=== PATIENT | female | born 1975 | race African-American/Black ===

== ENCOUNTER 2018-03-06 12:49 | Emergency (ER) | payer OTHER ==
[~2018-03-06] VITALS: Ht 177.8 cm; Wt 90.7 kg
--- NOTE | 2018-03-06 14:12 | PHYS DOC ---
Past Medical History Past Medical History: No Pertinent History Past Surgical History: Other Additional Past Surgical Histo: LEFT FOOT FRACTURE REPAIR Alcohol Use: None Drug Use: None Adult General Chief Complaint Chief Complaint: CONSTIPATION HPI HPI Patient is a 42 year old female who presents with constipation and pain in her left ankle. The patient states that she having problems with constipation for several months. She states that she's tried terx-xaq-fnuxnnn medications, enemas and stool softeners. She has not had success with home care. She states that she also broke her left ankle in October. She was unable to have follow-up on that due to an insurance issue. She is still wearing the cam boot and states that she is now having severe pain due to the fact that she was moving furniture and going up and down stairs recently. She denies nausea, vomiting or diarrhea. Review of Systems Review of Systems Constitutional: Denies fever or chills [] Eyes: Denies change in visual acuity, redness, or eye pain [] HENT: Denies nasal congestion or sore throat [] Respiratory: Denies cough or shortness of breath [] Cardiovascular: No additional information not addressed in HPI [] GI: See history of present illness : Denies dysuria or hematuria [] Musculoskeletal: See history of present illness Integument: Denies rash or skin lesions [] Neurologic: Denies headache, focal weakness or sensory changes [] Endocrine: Denies polyuria or polydipsia [] All other systems were reviewed and found to be within normal limits, except as documented in this note. Current Medications Current Medications Current Medications Medications (Trade) Dose Ordered [facility] Start Time Stop Time Status Last Admin Dose Admin Magnesium Citrate (Citroma) 296 ml 1X ONCE 03/06/18 16:00 03/06/18 16:01 DC 03/06/18 15:43 296 ML Allergies Allergies Allergies Coded Allergies Type Severity Reaction Last Updated Verified No Known Drug Allergies 03/06/18 No Physical Exam Physical Exam Constitutional: Well developed, well nourished, no acute distress, non-toxic appearance. [] Cardiovascular:Heart rate regular rhythm, no murmur [] Lungs & Thorax: Bilateral breath sounds clear to auscultation [] Abdomen: Bowel sounds normal, soft, no tenderness, no masses, no pulsatile masses. [] Skin: Warm, dry, no erythema, no rash. [] Back: No tenderness, no CVA tenderness. [] Extremities: tenderness to left ankle with a well-healed surgical scar noted, no cyanosis, no clubbing, ROM intact, no edema or ecchymosis, pulses and sensation are intact. [] Neurologic: Alert and oriented X 3, normal motor function, normal sensory function, no focal deficits noted. [] Psychologic: Affect normal, judgement normal, mood normal. [] Current Patient Data Vital Signs Vital Signs Date Time Temp Pulse Resp B/P (MAP) Pulse Ox O2 Delivery O2 Flow Rate FiO2 03/06/18 15:56 81 16 119/62 (81) 96 Room Air 03/06/18 12:55 97.7 97.7 Lab Values Laboratory Tests Test 03/06/18 14:20 POC Urine HCG, Qualitative Hcg negative (Negative) EKG EKG [] Radiology/Procedures Radiology/Procedures []PATIENT: JAMIR ZAPATAACCOUNT: [id number]#: [id number] : 1975 LOCATION: ER AGE: 42 SEX: F EXAM STATUS: REG ER ORD. PHYSICIAN: BRIGITTE ESPINOZA APRN REASON: constipation PROCEDURE: ANKLE LEFT 3V Three-view left ankle dated 03/06/2018. No comparison available. Clinical data indication: Ankle pain. Findings 3 views of left ankle show evidence of prior screw fixation of medial malleolus. There is incomplete healing of medial malleoli or fracture, not significantly displaced. The distal fibula is intact. No osteochondral defect of the talar dome. No acute findings. IMPRESSION: 1. No acute radiographic abnormality. 2. Status post ORIF medial malleolus fracture with incomplete healing at the fracture site. Electronically signed by: Alireza Ramirez MD (03/06/2018 3:09 PM) [facility] DICTATED and SIGNED BY: ALIREZA RAMIREZ MD DATE: 03/06/18 1507 PATIENT: JAMIR ZAPATA ACCOUNT: [id number] : 1975 LOCATION: ER AGE: 42 SEX: F EXAM STATUS: REG ER ORD. PHYSICIAN: BRIGITTE ESPINOZA APRN REASON: constipation PROCEDURE: ACUTE ABDOMEN SERIES EXAM: Abdomen acute complete. HISTORY: Constipation. COMPARISON: None. FINDINGS: A frontal view the chest and frontal upright and supine views of the abdomen are obtained. There is no infiltrate, pleural effusion or pneumothorax. The heart is normal in size. There is moderate stool within the colon. There is no abnormally dilated air-filled loop of small bowel. There is no free air. IMPRESSION: 1. No acute pulmonary finding. 2. Moderate colonic stool. Electronically signed by: Ani York MD (03/06/2018 3:09 PM) [place] [id number] DICTATED and SIGNED BY: ANI YORK MD DATE: 03/06/18 1912 Course & Med Decision Making Course & Med Decision Making Pertinent Labs and Imaging studies reviewed. (See chart for details) []The patient's x-ray does show a nonhealing fracture. She is to follow-up with orthopedics for further evaluation and possible surgical intervention. She is in agreement with this plan. She was given mag citrate in the emergency department for her constipation. Staff Physician Addendum: I was working in the ER during the course of this patient's visit. I was available for consultation as needed, but I was not directly involved in the care of this patient. Dragon Disclaimer Dragon Disclaimer This electronic medical record was generated, in whole or in part, using a voice recognition dictation system. Departure Departure Impression: Primary Impression: Non-healing fracture Additional Impression: Constipation Disposition: 01 HOME, SELF-CARE Condition: STABLE Referrals: NO PCP (PCP) CLAUDE QUESADA MD Patient Instructions: Ankle Fracture, [id number], Constipation, Adult Additional Instructions: Follow-up with orthopedics at an earliest available appointment for your nonhealing fracture. Take the pain medication as directed. Do not drive or operate heavy machinery while taking this medication. The pain medication may exacerbate your chronic constipation. Use a stool softener daily and take MiraLAX. Return to the emergency department if worsening. Scripts Hydrocodone/Apap 5-325 (NORCO 5-325 TABLET) 1 Each Tablet 1 TAB PO PRN Q6HRS PRN for PAIN, #20 TAB 0 Refills Prov: BRIGITTE ESPINOZA APRN 03/06/18 Problem Qualifiers BRIGITTE ESPINOZA APRN Mar 06, 2018 14:12 LV PATTON MD Mar 06, 2018 17:59
--- NOTE | 2018-03-06 15:12 | RAD ---
Three-view left ankle dated 03/06/2018. No comparison available. Clinical data indication: Ankle pain. Findings 3 views of left ankle show evidence of prior screw fixation of medial malleolus. There is incomplete healing of medial malleoli or fracture, not significantly displaced. The distal fibula is intact. No osteochondral defect of the talar dome. No acute findings. IMPRESSION: 1. No acute radiographic abnormality. 2. Status post ORIF medial malleolus fracture with incomplete healing at the fracture site. Electronically signed by: Alireza Ramirez MD (03/06/2018 3:09 PM) [facility]
--- NOTE | 2018-03-06 15:13 | RAD ---
EXAM: Abdomen acute complete. HISTORY: Constipation. COMPARISON: None. FINDINGS: A frontal view the chest and frontal upright and supine views of the abdomen are obtained. There is no infiltrate, pleural effusion or pneumothorax. The heart is normal in size. There is moderate stool within the colon. There is no abnormally dilated air-filled loop of small bowel. There is no free air. IMPRESSION: 1. No acute pulmonary finding. 2. Moderate colonic stool. Electronically signed by: Ani Jones MD (03/06/2018 3:09 PM) [place] [id number]
[2018-03-06] MEDS ORDERED: HYDR-971 PO (15:29)
[2018-03-06 15:56] VITALS: BP 119/62
[2018-03-06] MEDS ORDERED: MAGNESIUM CITRATE 296 ML SOLUTION. PO ONE (16:00)
== END 2018-03-06 15:56 | disposition home or self-care (01) ==
LOC: ER 12:49
DX: S82.52XG Displaced fracture of medial malleolus of left tibia, subsequent encounter for closed fracture with delayed healing (principal); K59.00 Constipation, unspecified; X58.XXXD Exposure to other specified factors, subsequent encounter
CPT/HCPCS: 73610; 74022; 81025; 99284

== ENCOUNTER 2018-06-20 17:06 | Emergency (ER) | payer MEDICAID, OTHER ==
[~2018-06-20] VITALS: Ht 177.8 cm; Wt 90.7 kg
[~2018-06-20 17:06] MED LIST: HYDR-3164 PO
[2018-06-20 17:45] LABS: BILIRUBIN,URINE NEGATIVE (NEG); CLARITY,URINE CLEAR; COLOR,URINE YELLOW; NITRITE,URINE NEGATIVE (NEG); PROTEIN,URINE NEGATIVE (NEG-TRACE); UROBILINOGEN,URINE 0.2 mg/dL (0.2 mg/dL)
[2018-06-20 17:49] LABS: FECAL OB PT POSITIVE (NEG)
[2018-06-20 17:57] LABS: BACTERIA,URINE 0 /HPF (0-FEW); RBC,URINE RARE /HPF (0-2); SQUAMOUS EPITHELIAL CELL,UR MOD /LPF; WBC,URINE RARE /HPF (0-4)
[2018-06-20 18:01] LABS: BASO # 0.1 x10^3/uL (0.0-0.2); BASO % 1 % (0-3); EOS # 0.1 x10^3/uL (0.0-0.7); EOS % 1 % (0-3); HEMATOCRIT 38.7 % (36.0-47.0); HEMOGLOBIN 13.7 g/dL (12.0-15.5); LYMPH # 3.8 x10^3/uL (1.0-4.8); LYMPH % 33 % (24-48); MEAN CORPUSCULAR HEMOGLOBIN 30 pg (25-35); MEAN CORPUSCULAR HGB CONC 36 g/dL (31-37); MEAN CORPUSCULAR VOLUME 83 fL (79-100); MONO # 0.8 x10^3/uL (0.0-1.1); MONO % 7 % (0-9); NEUT # 6.7 x10^3uL (1.8-7.7); NEUT % 59 % (31-73); PLATELET COUNT 248 x10^3/uL (140-400); RED BLOOD COUNT 4.65 x10^6/uL (3.50-5.40); RED CELL DISTRIBUTION WIDTH 13.1 % (11.5-14.5); WHITE BLOOD COUNT 11.4 x10^3/uL (4.0-11.0)
--- NOTE | 2018-06-20 18:03 | PHYS DOC ---
Past Medical History Past Medical History: Constipation Past Surgical History: Other Additional Past Surgical Histo: LEFT FOOT FRACTURE REPAIR Alcohol Use: None Drug Use: None Adult General Chief Complaint Chief Complaint: ABDOMINAL PAIN HPI HPI Patient is a 42 year old female with a history of constipation who presents today complaining of constipation. Patient states she is constipated on and off for 6 months. She states she is currently on oxycodone after having 2 surgeries on her left lower extremity. Patient also states she had nausea and vomiting today. She is also complaining of abdominal cramping. She states she has tried immc-dxl-nicptxs suppositories, enema and stool softeners with minimal relief. She states she had a bowel movement today which was very hard. She states she noted blood in her stool and was loose. Review of Systems Review of Systems Constitutional: Denies fever or chills [] Eyes: Denies change in visual acuity, redness, or eye pain [] HENT: Denies nasal congestion or sore throat [] Respiratory: Denies cough or shortness of breath [] Cardiovascular: No additional information not addressed in HPI [] GI: Reports constipation, abdominal pain nausea and vomiting, bloody stool, denies diarrhea : Denies dysuria or hematuria [] Musculoskeletal: Denies back pain or joint pain [] Integument: Denies rash or skin lesions [] Neurologic: Denies headache, focal weakness or sensory changes [] All other systems were reviewed and found to be within normal limits, except as documented in this note. Current Medications Current Medications Current Medications Medications (Trade) Dose Ordered Sig/Soo Start Time Stop Time Status Last Admin Dose Admin Info (CONTRAST GIVEN -- Rx MONITORING) 1 each PRN DAILY PRN 06/20/18 19:00 06/22/18 18:59 Iohexol (Omnipaque 300 Mg/ml) 75 ml 1X ONCE 06/20/18 19:00 06/20/18 19:01 DC 06/20/18 19:02 75 ML Potassium Chloride (Klor-Con) 40 meq 1X ONCE 06/20/18 18:15 06/20/18 18:16 DC 06/20/18 18:15 40 MEQ Allergies Allergies Allergies Coded Allergies Type Severity Reaction Last Updated Verified No Known Drug Allergies 03/06/18 No Physical Exam Physical Exam Constitutional: Well developed, well nourished, no acute distress, non-toxic appearance. [] HENT: Normocephalic, atraumatic, bilateral external ears normal, oropharynx moist, no oral exudates, nose normal. [] Eyes: PERRLA, EOMI, conjunctiva normal, no discharge. [] Neck: Normal range of motion, no tenderness, supple, no stridor. [] Cardiovascular:Heart rate regular rhythm, no murmur [] Lungs & Thorax: Bilateral breath sounds clear to auscultation [] Abdomen: Bowel sounds normal, soft, no tenderness, no masses, no pulsatile masses. [] Rectal exam External rectum appears normal, no internal or external hemorrhoids noted, no active bleeding. Skin: Warm, dry, no erythema, no rash. [] Back: No tenderness, no CVA tenderness. [] Extremities: Left lower extremity with a cum boot Neurologic: Alert and oriented X 3, normal motor function, normal sensory function, no focal deficits noted. [] Psychologic: Affect normal, judgement normal, mood normal. [] Current Patient Data Vital Signs Vital Signs Date Time Temp Pulse Resp B/P (MAP) Pulse Ox O2 Delivery O2 Flow Rate FiO2 06/20/18 19:40 79 12 172/73 (106) 99 Room Air 06/20/18 17:27 97.1 97.1 Lab Values Laboratory Tests Test 06/20/18 17:25 06/20/18 17:26 06/20/18 17:37 06/20/18 17:48 Urine Collection Type Unknown Urine Color Yellow Urine Clarity Clear Urine pH 8.0 Urine Specific Paicines 1.020 Urine Protein Negative mg/dL (NEG-TRACE) Urine Glucose (UA) Negative mg/dL (NEG) Urine Ketones (Stick) Trace mg/dL (NEG) Urine Blood Trace (NEG) Urine Nitrite Negative (NEG) Urine Bilirubin Negative (NEG) Urine Urobilinogen Dipstick 0.2 mg/dL (0.2 mg/dL) Urine Leukocyte Esterase Negative (NEG) Urine RBC Rare /HPF (0-2) Urine WBC Rare /HPF (0-4) Urine Squamous Epithelial Cells Mod /LPF Urine Bacteria 0 /HPF (0-FEW) Urine Opiates Screen Neg (NEG) Urine Methadone Screen Neg (NEG) Urine Barbiturates Neg (NEG) Urine Phencyclidine Screen Neg (NEG) Urine Amphetamine/Methamphetamine Neg (NEG) Urine Benzodiazepines Screen Pos (NEG) Urine Cocaine Screen Neg (NEG) Urine Cannabinoids Screen Pos (NEG) Urine Ethyl Alcohol Neg (NEG) Stool Occult Blood Positive (NEG) POC Urine HCG, Qualitative Hcg negative (Negative) White Blood Count 11.4 x10^3/uL (4.0-11.0) H Red Blood Count 4.65 x10^6/uL (3.50-5.40) Hemoglobin 13.7 g/dL (12.0-15.5) Hematocrit 38.7 % (36.0-47.0) Mean Corpuscular Volume 83 fL (79-100) Mean Corpuscular Hemoglobin 30 pg (25-35) Mean Corpuscular Hemoglobin Concent 36 g/dL (31-37) Red Cell Distribution Width 13.1 % (11.5-14.5) Platelet Count 248 x10^3/uL (140-400) Neutrophils (%) (Auto) 59 % (31-73) Lymphocytes (%) (Auto) 33 % (24-48) Monocytes (%) (Auto) 7 % (0-9) Eosinophils (%) (Auto) 1 % (0-3) Basophils (%) (Auto) 1 % (0-3) Neutrophils # (Auto) 6.7 x10^3uL (1.8-7.7) Lymphocytes # (Auto) 3.8 x10^3/uL (1.0-4.8) Monocytes # (Auto) 0.8 x10^3/uL (0.0-1.1) Eosinophils # (Auto) 0.1 x10^3/uL (0.0-0.7) Basophils # (Auto) 0.1 x10^3/uL (0.0-0.2) Sodium Level 138 mmol/L (136-145) Potassium Level 3.1 mmol/L (3.5-5.1) L Chloride Level 101 mmol/L (98-107) Carbon Dioxide Level 25 mmol/L (21-32) Anion Gap 12 (6-14) Blood Urea Nitrogen 7 mg/dL (7-20) Creatinine 0.8 mg/dL (0.6-1.0) Estimated GFR (Cockcroft-Gault) 95.6 BUN/Creatinine Ratio 9 (6-20) Glucose Level 108 mg/dL (70-99) H Calcium Level 9.4 mg/dL (8.5-10.1) Total Bilirubin 0.8 mg/dL (0.2-1.0) Aspartate Amino Transferase (AST) 14 U/L (15-37) L Alanine Aminotransferase (ALT) 22 U/L (14-59) Alkaline Phosphatase 58 U/L (46-116) Total Protein 7.8 g/dL (6.4-8.2) Albumin 4.0 g/dL (3.4-5.0) Albumin/Globulin Ratio 1.1 (1.0-1.7) Lipase 151 U/L (73-393) Ethyl Alcohol Level < 10 mg/dL (0-10) Laboratory Tests 06/20/18 17:48 Laboratory Tests 06/20/18 17:48 EKG EKG [] Radiology/Procedures Radiology/Procedures []PROCEDURE: CT ABD PELV W/ IV CONTRST ONLY PQRS Compliance Statement: One or more of the following individualized dose reduction techniques were utilized for this examination: 1. Automated exposure control 2. Adjustment of the mA and/or kV according to patient size 3. Use of iterative reconstruction technique CT ABD PELV W/ IV CONTRST ONLY Clinical Indication: CONSTIPATION X 6 MONTHS ON OXYCODONE Comparison: None. Technique: Helical CT imaging of the abdomen and pelvis is performed after 75 cc of Omnipaque 300 IV contrast. Oral contrast not given. Findings: Lung bases clear. Cardiac size normal. The liver, gallbladder, spleen, pancreas, adrenal glands, abdominal aorta, and kidneys are normal. Incidental retroaortic left renal vein. There is hyperdense material in the stomach, correlate to recent ingestions. There is no dilated small bowel. The appendix is normal. The descending colon is not well distended. Cannot exclude mild wall thickening. No surrounding inflammation is seen. The colon is otherwise normal. No abdominal adenopathy or free fluid. Urinary bladder is normal. Uterus and ovaries unremarkable. Mild pelvic free fluid, probably physiologic. No acute bone abnormality. IMPRESSION: 1. The descending colon is not well distended. Cannot exclude mild wall thickening. Considerations include mild nonspecific colitis versus pseudothickening due to lack of distention. 2. Mild pelvic free fluid, probably physiologic. Electronically signed by: Bryan Downs MD (06/20/2018 7:20 PM) [facility] DICTATED and SIGNED BY: BRYAN DOWNS MD DATE: 06/20/181913 Course & Med Decision Making Course & Med Decision Making Pertinent Labs and Imaging studies reviewed. (See chart for details) This is a 42-year-old female patient presented to the ED today with constipation on and off for 6 months. Currently on oxycodone for left lower extremity pain post ankle surgery. Negative urine hCG, urine analysis is negative for infection, CBC with a WBC of 11.4 normal H&H positive hemocult, CMP with potassium of 3.1, patient was given oral potassium replacement. CT of the abdomen and pelvic-The descending colon is not well distended. Cannot exclude mild wall thickening. Considerations include mild nonspecific colitis versus pseudothickening due to lack of distention. Mild pelvic free fluid, probably physiologic. Results were given to patient. Patient has states she had bloody diarrhea. Patient was discharged with Flagyl and Rocephin. Encouraged her to follow-up with her own primary care doctor or GI. Instructed to push fluids. Encouraged her to consider slowing down on her pain medications and see if this will help with her constipation. Provided return precautions and discharged in stable condition. Dragon Disclaimer Dragon Disclaimer This electronic medical record was generated, in whole or in part, using a voice recognition dictation system. Departure Departure Impression: Primary Impression: Constipation Additional Impression: Colitis Disposition: 01 HOME, SELF-CARE Condition: STABLE Referrals: NO PCP (PCP) TORRIE SILVA MD Follow-up in one week Patient Instructions: Colitis, Constipation, Adult Additional Instructions: You were evaluated in the emergency room and noted to have colitis. Take the prescribed antibiotics until completed, increase your dietary water intake as well as fiber intake. Avoid taking narcotics because they cause constipation. Scripts Metronidazole (FLAGYL) 500 Mg Tablet 500 MG PO TID, #30 TAB Prov: SAM ANGULO NON MORSE INTERCEPT TECHNICIAN 06/20/18 Ciprofloxacin Hcl (CIPRO) 500 Mg Tablet 1 TAB PO BID, #20 TAB Prov: MUTSAM YOST NON MORSE INTERCEPT TECHNICIAN 06/20/18 Ondansetron Hcl (ZOFRAN) 4 Mg Tablet 1 TAB PO Q6HRS, #20 TAB Prov: SAM ANGULO NON MORSE INTERCEPT TECHNICIAN 06/20/18 Problem Qualifiers Primary Impression: Constipation Constipation type: unspecified constipation type Qualified Codes: K59.00 - Constipation, unspecified SAM ANGULO APRN Jun 20, 2018 18:03
[2018-06-20 18:09] LABS: CALCIUM 9.4 mg/dL (8.5-10.1); CREATININE 0.8 mg/dL (0.6-1.0); GFR 95.6; POTASSIUM 3.1 mmol/L (3.5-5.1)
[2018-06-20 18:13] LABS: ALBUMIN/GLOBULIN RATIO 1.1 (1.0-1.7); TOTAL BILIRUBIN 0.8 mg/dL (0.2-1.0); TOTAL PROTEIN 7.8 g/dL (6.4-8.2)
[2018-06-20 18:13] LABS: BARBITURATES NEG (NEG); BENZODIAZEPINES POS (NEG); CANNABINOIDS POS (NEG); COCAINE NEG (NEG); METHADONE NEG (NEG); OPIATES NEG (NEG); PHENCYCLIDINE NEG (NEG)
[2018-06-20 18:15] LABS: AMPHETAMINE/METHAMPHETAMINE NEG (NEG)
[2018-06-20] MEDS ORDERED: POTASSIUM CHLORIDE 20 MEQ TABLET.ER. PO ONE (18:15)
--- NOTE | 2018-06-20 18:52 | RAD ---
ACUTE ABDOMEN SERIES History: Constipation x6 months. Rectal bleeding. Comparison: Acute abdominal series March 06, 2018. Findings: Frontal chest and supine and upright views of the abdomen. Cardiomediastinal silhouette is normal. There is no pleural effusion or pneumothorax. The lungs are clear. No pneumoperitoneum is identified. No dilated air-filled loops of small bowel are seen. Bowel gas pattern is nonobstructive. There are phleboliths in the pelvis. Bones unremarkable. IMPRESSION: 1. No acute cardiopulmonary process. 2. Nonobstructive bowel gas pattern. Electronically signed by: Bryan Downs MD (06/20/2018 6:49 PM) [facility]
[2018-06-20] MEDS ORDERED: CONTRAST GIVEN. MC PRN (19:00)
[2018-06-20] MEDS ORDERED: IOHEXOL 300 MG/ML 100ML VIAL. IV ONE (19:00)
--- NOTE | 2018-06-20 19:24 | RAD ---
PQRS Compliance Statement: One or more of the following individualized dose reduction techniques were utilized for this examination: 1. Automated exposure control 2. Adjustment of the mA and/or kV according to patient size 3. Use of iterative reconstruction technique CT ABD PELV W/ IV CONTRST ONLY Clinical Indication: CONSTIPATION X 6 MONTHS ON OXYCODONE Comparison: None. Technique: Helical CT imaging of the abdomen and pelvis is performed after 75 cc of Omnipaque 300 IV contrast. Oral contrast not given. Findings: Lung bases clear. Cardiac size normal. The liver, gallbladder, spleen, pancreas, adrenal glands, abdominal aorta, and kidneys are normal. Incidental retroaortic left renal vein. There is hyperdense material in the stomach, correlate to recent ingestions. There is no dilated small bowel. The appendix is normal. The descending colon is not well distended. Cannot exclude mild wall thickening. No surrounding inflammation is seen. The colon is otherwise normal. No abdominal adenopathy or free fluid. Urinary bladder is normal. Uterus and ovaries unremarkable. Mild pelvic free fluid, probably physiologic. No acute bone abnormality. IMPRESSION: 1. The descending colon is not well distended. Cannot exclude mild wall thickening. Considerations include mild nonspecific colitis versus pseudothickening due to lack of distention. 2. Mild pelvic free fluid, probably physiologic. Electronically signed by: Bryna Downs MD (06/20/2018 7:20 PM) [facility]
[2018-06-20 19:40] VITALS: BP 172/73
[2018-06-20] MEDS ORDERED: ONDA4TAB7 PO (20:00)
[2018-06-20] MEDS ORDERED: CIPR500T94 PO (20:00)
[2018-06-20] MEDS ORDERED: METR500T PO (20:00)
== END 2018-06-20 20:20 | disposition home or self-care (01) ==
LOC: ER 17:06
DX: K52.9 Noninfective gastroenteritis and colitis, unspecified (principal); K59.00 Constipation, unspecified
CPT/HCPCS: 36415; 74022; 74177; 80053; 80307; 81001; 81025; 82274; 83690; 85025; 99284; G0480; Q9967

== ENCOUNTER 2018-09-14 19:48 | Emergency (ER) | payer MEDICAID ==
[~2018-09-14 19:48] MED LIST changes: +CIPR500T94 PO; +METR500T PO; +ONDA4TAB7 PO
[2018-09-30] MEDS ORDERED: OXYC1TAB15 PO (17:02)
== END 2018-09-14 21:51 | disposition left against medical advice (07) ==
LOC: ER 19:48
DX: M25.579 Pain in unspecified ankle and joints of unspecified foot (principal); M25.569 Pain in unspecified knee; M25.559 Pain in unspecified hip; Z53.21 Procedure and treatment not carried out due to patient leaving prior to being seen by health care provider

== ENCOUNTER 2018-09-30 12:30 | Day surgery (SDC) | payer MEDICAID ==
[2018-09-30] MEDS ORDERED: IV RINGERS,LACTATED 1000ML 1,000 ML IV SCH (12:45)
[2018-09-30] MEDS ORDERED: LIDOCAINE 1% PF 2 ML VIAL. ID PRN (12:45)
[2018-09-30] MEDS ORDERED: fentaNYL PF VIAL 100 MCG/2 ML VIAL IV PRN (12:45)
[2018-09-30] MEDS ORDERED: MIDAZOLAM HCL/PF 2 MG/2 ML VIAL. IV PRN (12:45)
[2018-09-30] MEDS ORDERED: MELO7.5T5 PO (13:01)
[2018-09-30] MEDS ORDERED: CYCL5TAB PO (13:02)
[2018-09-30 13:31] LABS: U PREG PATIENT NEGATIVE (NEG)
[2018-09-30] MEDS ORDERED: BUPIVAC MPF-EPI 0.5%-1:200000 30 ML VIAL. ONE (15:16)
[2018-09-30] MEDS ORDERED: PROPOFOL 20 ML IV ONE (15:28)
[2018-09-30] MEDS ORDERED: ONDANSETRON PF 4 MG/2 ML VIAL. ONE (15:28)
[2018-09-30] MEDS ORDERED: DEXAMETHASONE SOD PHOS 20 MG/5 ML VIAL. ONE ×2 (15:28→17:45)
[2018-09-30] MEDS ORDERED: LIDOCAINE 2% PF 5 ML VIAL. ONE (15:28)
[2018-09-30] MEDS ORDERED: BUPIVACAINE MPF 0.5% 30 ML VIAL. ONE (16:23)
[2018-09-30] MEDS ORDERED: fentaNYL PF VIAL 100 MCG/2 ML VIAL ONE (16:38)
[2018-09-30] MEDS ORDERED: FAMOTIDINE 20 MG/2 ML VIAL ONE (16:38)
[2018-09-30] MEDS ORDERED: MIDAZOLAM HCL/PF 2 MG/2 ML VIAL. ONE (16:39)
[2018-09-30] MEDS ORDERED: OXYC1TAB15 PO (17:02)
--- NOTE | 2018-09-30 17:02 | DISCH ---
DISCHARGE INSTRUCTIONS Condition on Discharge Condition on Discharge: Stable Activity After Discharge Activity Instructions for Disc: Other, see below (elevate and ice when not up and around on crutches to minimize swelling) Weight Bearing Status after Di: Non weight bearing Diet after Discharge Diet after Discharge: Regular Wound Incision Care Wound/Incision Care: Do not change dressing Contacting the after DC Call your doctor for: Concerns you may have Follow-Up Follow up with: Dr. Braun 7-10 days Treatment/Equipment after DC Adaptive Equipment Issued: Crutches (patient has crutches) DIANE BRAUN MD Sep 30, 2018 17:02
[2018-09-30] MEDS ORDERED: BUPIVACAINE MPF 0.5% 30 ML VIAL. INJ ONE (17:35)
[2018-09-30] MEDS: fentaNYL PF VIAL 100 MCG/2 ML VIAL IV PRN ×2 (17:55→18:09)
--- NOTE | 2018-09-30 17:59 | PDOC4 ---
Operative Note Operative Note Date of surgery: 09/30/2018 Preoperative diagnosis: Mild displacement of medial malleolus fracture Postoperative diagnosis: Same Operative procedure: Operative reduction internal fixation medial malleolus fracture with cannulated screws 2 Surgeon: Kade Anesthesia: Gen. Estimated blood loss: 15 mL Complications: None Operative indications: Yenifer is 43-year-old female who was seen at her primary care physician's office following a twisting injury to her left ankle. I went over with her the x-ray findings that showed some irregularity of the ankle joint mortise and mild displacement of the fracture. Ideally we want anatomic alignment of this and just based on the mechanical factors with a medial malleolar fracture healing rate tends to be decreased even for closed treatment. I went over with her the risks of operative procedure including the possibility of infection nonhealing continued pain nerve or blood vessel damage medical or other anesthetic complications among others all her questions were answered she wishes to proceed with surgical evaluation and treatment. Operative text: Patient was identified procedure verified patient placed in the supine position on the operating table. After adequate amounts of general anesthesia were administered the left lower extremity was prepped and draped in standard sterile fashion. After timeout was performed patient procedure identified and verified the left lower extremity was exsanguinated by Esmarch bandage tourniquet inflated to 300 mmHg and a incision was made over the medial malleolus. Curvilinear and subperiosteal dissection was carried out. Fracture was reduced under fluoroscopic guidance and a total of 2 K wires were placed across the fracture and Triston 4.0 cannulated screws 40 mm in length were used to provide excellent compression and anatomic reduction across the fracture site. Hardware placement and anatomic reduction of ankle joint mortise was noted under multiple fluoroscopic views. Thorough irrigation carried out normal saline solution subcutaneous closure with buried Vicryl suture subcuticular 4-0 Monocryl Steri-Strips and Mastisol were applied a well-padded posterior splint was applied with 3 inch Ortho-Glass. Toes were noted be warm pink following deflation of tourniquet patient was returned to recovery room in stable condition having tolerated procedure well DIANE BETH MD Sep 30, 2018 17:59
[2018-09-30] MEDS ORDERED: MORPHINE SULFATE 2 MG/ML VIAL. ONE (18:35)
[2018-09-30] MEDS ORDERED: oxyCODONE/APAP 5/325 1 TAB TABLET PO ONE (18:45)
[2018-09-30] MEDS ORDERED: MORPHINE SULFATE 2 MG/ML VIAL. IV ONE (18:45)
[2018-09-30 19:00] VITALS: BP 120/65
== END 2018-09-30 20:10 | disposition home or self-care (01) ==
LOC: SURG 12:30
PROVIDERS: ATTEND Orthopaedic Surgery
DX: S82.52XA Displaced fracture of medial malleolus of left tibia, initial encounter for closed fracture (principal); K21.9 Gastro-esophageal reflux disease without esophagitis; F17.210 Nicotine dependence, cigarettes, uncomplicated; Z72.89 Other problems related to lifestyle; Z98.890 Other specified postprocedural states; Z79.899 Other long term (current) drug therapy; X50.1XXA Overexertion from prolonged static or awkward postures, initial encounter; Y93.89 Activity, other specified; Y92.89 Other specified places as the place of occurrence of the external cause; Y99.8 Other external cause status
CPT/HCPCS: 27766; 76000; 81025; A7015; C1713; J0696; J1100; J2001; J2250; J2270; J2405; J2704; J3010; J3490; J7120

== ENCOUNTER 2019-04-08 07:47 | Emergency (ER) | payer SELFPAY ==
[~2019-04-08] VITALS: Ht 177.8 cm; Wt 90.7 kg
[~2019-04-08 07:47] MED LIST changes: +CYCL5TAB PO; +MELO7.5T5 PO; +OXYC1TAB15 PO
[2019-04-08 08:20] VITALS: BP 143/95
[2019-04-08] MEDS ORDERED: KETOROLAC 30 MG/ML VIAL. IM ONE (08:30)
[2019-04-08] MEDS ORDERED: HYDROcodone/APAP 5/325MG 1 TAB TABLET PO ONE (08:30)
[2019-04-08] MEDS ORDERED: CYCL5TAB PO ×2 (08:31→09:23)
[2019-04-08] MEDS ORDERED: PRED50TA PO ×2 (08:31→09:23)
--- NOTE | 2019-04-08 09:18 | PHYS DOC ---
Past Medical History Past Medical History: Constipation Past Surgical History: Other Additional Past Surgical Histo: LEFT FOOT FRACTURE REPAIR Alcohol Use: None Drug Use: None Adult General Chief Complaint Chief Complaint: LOWER BACK PAIN OR INJURY [facility] HPI Patient is a 43 year old female presenting with chief complaint of low back pain. Patient was lifting a trash bag at home to [employer] where she works and she turned over to throw in the trash can and she had a severe spasming pain low back midline no bowel or bladder incontinence no numbness tingling or weakness noted no fever no abdominal pain no fall she did not have any blunt trauma denies a previous history of back pain that she knows of That her tubes tied 17 years ago denies any chance of . Review of Systems Review of Systems Constitutional: Denies fever or chills [] Eyes: Denies change in visual acuity, redness, or eye pain [] Cardiovascular: No additional information not addressed in HPI [] GI: Denies abdominal pain, nausea, vomiting, bloody stools or diarrhea [] : Denies dysuria or hematuria [] Musculoskeletal: Neurologic: Denies headache, focal weakness or sensory changes [] Endocrine: Denies polyuria or polydipsia [] All other systems were reviewed and found to be within normal limits, except as documented in this note. Current Medications Current Medications Current Medications Medications (Trade) Dose Ordered Sig/[facility] Start Time Stop Time Status Last Admin Dose Admin Acetaminophen/ Hydrocodone Bitart (Lortab 5/325) 2 tab 1X ONCE 04/08/19 08:30 04/08/19 08:32 DC 04/08/19 08:50 2 TAB Ketorolac Tromethamine (Toradol 30mg Vial) 30 mg 1X ONCE 04/08/19 08:30 04/08/19 08:32 DC 04/08/19 08:51 30 MG Allergies Allergies Allergies Coded Allergies Type Severity Reaction Last Updated Verified No Known Drug Allergies 09/30/18 No Physical Exam Physical Exam Constitutional: Well developed, well nourished, no acute distress, non-toxic appearance. [] HENT: Normocephalic, atraumatic, bilateral external ears normal, oropharynx moist, no oral exudates, nose normal. [] Eyes: PERRLA, EOMI, conjunctiva normal, no discharge. [] Neck: Normal range of motion, no tenderness, supple, no stridor. [] Abdomen: Bowel sounds normal, soft, no tenderness, no masses, no pulsatile masses. [] Skin: Warm, dry, no erythema, no rash. [] Back: Bilateral midline paraspinous tenderness noted Extremities: No tenderness, no cyanosis, no clubbing, ROM intact, no edema. [] Neurologic: Alert and oriented X 3, normal motor function, normal sensory function, no focal deficits noted. [] Psychologic: Affect normal, judgement normal, mood normal. [] Current Patient Data Vital Signs Vital Signs Date Time Temp Pulse Resp B/P (MAP) Pulse Ox O2 Delivery O2 Flow Rate FiO2 04/08/19 08:50 20 99 Room Air 04/08/19 08:20 97.9 76 143/95 (111) 97.9 EKG EKG [] Radiology/Procedures Radiology/Procedures [] Course & Med Decision Making Course & Med Decision Making Pertinent Labs and Imaging studies reviewed. (See chart for details) 43-year-old female LOW BACK PAIN LIKELY MUSCULAR STRAIN DISTALNEURO FX INTACT. NO B/B INCONTINENCE. PREDNISONE FLEXERIL GIVEN Dragon Disclaimer Dragon Disclaimer This electronic medical record was generated, in whole or in part, using a voice recognition dictation system. Departure Departure Impression: Primary Impression: Low back pain Disposition: HOME, SELF-CARE Condition: STABLE Patient Instructions: Back Pain, Adult, Dxnf-ht-[id number] Scripts Cyclobenzaprine Hcl (CYCLOBENZAPRINE HCL) 5 Mg Tablet 5 MG PO PRN TID PRN for PAIN, #15 TAB Prov: LV PATTON MD 04/08/19 Prednisone (PREDNISONE) 50 Mg Tablet 1 TAB PO DAILY, #5 TAB Prov: LV PATTON MD 04/08/19 LV PATTON MD Apr 08, 2019 09:18
== END 2019-04-08 09:24 | disposition home or self-care (01) ==
LOC: ER 07:47
DX: M54.5 Low back pain (principal)
CPT/HCPCS: 96372; 99283; J1885

== ENCOUNTER 2019-12-12 15:24 | Emergency (ER) | payer OTHER ==
[~2019-12-12] VITALS: Ht 177.8 cm; Wt 93.0 kg
[~2019-12-12 15:24] MED LIST changes: +PRED50TA PO
[2019-12-12 15:30] VITALS: BP 128/76
[2019-12-12] MEDS ORDERED: FLUORESCEIN OPHTH TEST STRIP. OD ONE (16:00)
[2019-12-12] MEDS ORDERED: TETRACAINE 0.5% OPHTH SOLUTION 4ML BOTTLE. OD ONE (16:00)
[2019-12-12] MEDS ORDERED: CYCL10TA2 PO (17:33)
[2019-12-12] MEDS ORDERED: PEG15DRO4 RIGHTEYE (17:33)
[2019-12-12] MEDS ORDERED: METH4TAB2 PO (17:33)
[2019-12-12] MEDS ORDERED: NAPR-514 PO (17:33)
--- NOTE | 2019-12-12 17:33 | PHYS DOC ---
Past Medical History Past Medical History: Constipation Past Surgical History: Other Additional Past Surgical Histo: LEFT FOOT FRACTURE REPAIR Smoking Status: Never Smoker Alcohol Use: None Drug Use: None General Adult EDM: Chief Complaint: EYE PROBLEMS HPI: HPI: Patient is a 44 year old female who presents to the ED today concerned she has a foreign object to the right eye. Patient reports working at [employer] today with no eye protection and felt something in her eye. Patient denies any vision loss. Patient is also complaining of left ankle pain rated as mild and intermittent. She states she has had surgery to the ankle but has not been seen by orthopedic doctor for awhile. Denies any new injuries. She is requesting some pain medicine for home use. She states she has not taken pain medicine for a while. Review of Systems: Review of Systems: Constitutional: Denies fever or chills. [] Eyes: Reports foreign object to the left eye. Denies change in visual acuity. [] : Denies dysuria. [] Musculoskeletal: Reports left ankle pain. Integument: Denies rash. [] Neurologic: Denies headache, focal weakness or sensory changes. [] Psychiatric: Denies depression or anxiety. [] Heart Score: Risk Factors: Risk Factors: DM, Current or recent (<one month) smoker, HTN, HLP, family history of CAD, obesity. Risk Scores: Score 0 - 3: 2.5% MACE over next 6 weeks - Discharge Home Score 4 - 6: 20.3% MACE over next 6 weeks - Admit for Clinical Observation Score 7 - 10: 72.7% MACE over next 6 weeks - Early Invasive Strategies Current Medications: Current Medications Medications (Trade) Dose Ordered Sig/Soo Start Time Stop Time Status Last Admin Dose Admin Fluorescein Sodium (Ful-Erika) 1 strip 1X ONCE 12/12/19 16:00 12/12/19 16:01 DC 12/12/19 16:24 1 STRIP Tetracaine HCl (Tetracaine) 1 drop 1X ONCE 12/12/19 16:00 12/12/19 16:01 DC 12/12/19 16:24 1 DROP Allergies: Allergies: Allergies Coded Allergies Type Severity Reaction Last Updated Verified No Known Drug Allergies 09/30/18 No Physical Exam: PE: Constitutional: Well developed, well nourished, no acute distress, non-toxic appearance. [] HENT: Normocephalic, atraumatic, bilateral external ears normal, oropharynx moist, no oral exudates, nose normal. [] Eyes: PERRLA, EOMI, right conjunctiva is slightly injected. Right conjunctiva was examined under [place] lamp, no foreign object noted, no corneal abrasion. Right eyelid was flipped, no foreign object noted. Skin: Warm, dry, no erythema, no rash. [] Back: No tenderness, no CVA tenderness. [] Extremities: Left medial ankle with no edema, no ecchymosis, old healed surgical incision noted on the medial aspect of the ankle. Full range of motion to the ankle. +2 left pedal pulse. Cap refill less than 2 seconds in left toes. Neurologic: Alert and oriented X 3, normal motor function, normal sensory function, no focal deficits noted. [] Psychologic: Affect normal, judgement normal, mood normal. [] Current Patient Data: Vital Signs: Vital Signs Date Time Temp Pulse Resp B/P (MAP) Pulse Ox O2 Delivery O2 Flow Rate FiO2 12/12/19 15:30 98.5 79 18 128/76 (93) 96 Room Air 98.5 EKG: EKG: [] Radiology/Procedures: Radiology/Procedures: [] Course & Med Decision Making: Course & Med Decision Making Pertinent Labs and Imaging studies reviewed. (See chart for details) This is a 44-year-old female patient presenting to the ED today complaining of a possible foreign object to the right eye. Right eye was examined, no foreign object was noted. Patient was provided ophthalmology for follow-up as an outpatient. Artificial tears recommended. She is also complaining of chronic left ankle pain. Encourage her to follow-up with an orthopedic doctor. She was discharged with Medrol Dosepak, naproxen and Flexeril for her chronic ankle pain. Dragon Disclaimer: Dragon Disclaimer: This electronic medical record was generated, in whole or in part, using a voice recognition dictation system. Departure Departure Impression: Primary Impression: Irritation of right eye Additional Impression: Left ankle pain Qualified Codes: M25.572 - Pain in left ankle and joints of left foot; G89.29 - Other chronic pain Disposition: 01 HOME, SELF-CARE Condition: STABLE Referrals: NO PCP (PCP) RAMYA CARABALLO MD follow up in one week DIANE BETH MD follow up in 1-2 weeks Patient Instructions: Ankle Pain, Artificial Tears eye solution Additional Instructions: Your right eye was examined, there is no foreign object that was noted. Please follow-up with the provided coffee shop aide. You can use [id number] artificial tears. Your left ankle you can follow-up with the orthopedic doctor. Scripts Naproxen (NAPROXEN) 500 Mg Tablet 1 TAB PO BID for pain for 30 Days, #60 TAB 0 Refills Prov: SAM ANGULO APRN 12/12/19 Cyclobenzaprine Hcl (CYCLOBENZAPRINE HCL) 10 Mg Tablet 1 TAB PO TID, #30 TAB Prov: SAM ANGULO APRN 20 Peg 400/Hypromellose/Glycerin (ARTIFICIAL TEARS DROPS) 15 Ml Drops 1 DROP RIGHTEYE QID for 30 Days, #5 ML 0 Refills Prov: SAM ANGULO APRN 12/12/19 Methylprednisolone (MEDROL) 4 Mg Tab.ds.pk 1 PKG PO UD, #1 PKG Prov: SAM ANGULO APRN 12/12/19 Justicifation of Admission Dx: Justifications for Admission: Justification of Admission Dx: N/A SAM ANGULO APRN Dec 12, 2019 17:33
== END 2019-12-12 17:40 | disposition home or self-care (01) ==
LOC: ER 15:24
DX: H57.89 Other specified disorders of eye and adnexa (principal); M25.572 Pain in left ankle and joints of left foot; G89.29 Other chronic pain; Z98.890 Other specified postprocedural states
CPT/HCPCS: 99283

== ENCOUNTER 2019-12-24 23:25 | Emergency (ER) | payer OTHER ==
[~2019-12-24] VITALS: Ht 177.8 cm; Wt 93.1 kg
[~2019-12-24 23:25] MED LIST changes: +CYCL10TA2 PO; +METH4TAB2 PO; +NAPR-514 PO; +PEG15DRO4 RIGHTEYE
[2019-12-25] MEDS ORDERED: ACETAMINOPHEN 500 MG TABLET PO ONE (00:30)
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
[2019-12-25] MEDS ORDERED: IBUPROFEN 200 MG TABLET. PO ONE (02:00)
[2019-12-25 02:33] LABS: BASO # 0.2 x10^3/uL (0.0-0.2); BASO % 1 % (0-3); EOS % 0 % (0-3); HEMATOCRIT 35.6 % (36.0-47.0); HEMOGLOBIN 12.5 g/dL (12.0-15.5); LYMPH # 1.3 x10^3/uL (1.0-4.8); LYMPH % 11 % (24-48); MEAN CORPUSCULAR HEMOGLOBIN 29 pg (25-35); MEAN CORPUSCULAR HGB CONC 35 g/dL (31-37); MEAN CORPUSCULAR VOLUME 82 fL (79-100); MONO # 0.6 x10^3/uL (0.0-1.1); MONO % 5 % (0-9); NEUT # 10.5 x10^3/uL (1.8-7.7); NEUT % 84 % (31-73); PLATELET COUNT 280 x10^3/uL (140-400); RED BLOOD COUNT 4.35 x10^6/uL (3.50-5.40); RED CELL DISTRIBUTION WIDTH 13.6 % (11.5-14.5); WHITE BLOOD COUNT 12.6 x10^3/uL (4.0-11.0)
[2019-12-25 02:58] LABS: CALCIUM 8.7 mg/dL (8.5-10.1); CREATININE 1.2 mg/dL (0.6-1.0); GFR 59.3; POTASSIUM 3.5 mmol/L (3.5-5.1)
[2019-12-25 03:06] LABS: ALBUMIN 3.5 g/dL (3.4-5.0); ALBUMIN/GLOBULIN RATIO 1.2 (1.0-1.7); TOTAL BILIRUBIN 0.8 mg/dL (0.2-1.0); TOTAL PROTEIN 6.5 g/dL (6.4-8.2)
--- NOTE | 2019-12-25 04:03 | RAD ---
EXAM: 1. LEFT ANKLE 3 VIEWS. 2. LEFT FOOT 3 VIEWS. HISTORY: Left foot and ankle pain after a fall. COMPARISON: 11/14/2018. FINDINGS: No acute fractures are identified about the ankle. There are changes of internal fixation of a chronic medial malleolar fracture. The alignment of the mortise is maintained. Joint spaces are maintained. No fractures are identified in the foot. Alignment is normal. Joint spaces are maintained. IMPRESSION: 1. No acute fracture. Electronically signed by: Julio C Gibson MD (12/25/2019 4:00 AM) [facility]
--- NOTE | 2019-12-25 04:08 | RAD ---
EXAM: LEFT WRIST 3 VIEWS. HISTORY: Left wrist pain, swelling after injury. COMPARISON: None. FINDINGS: No fractures are identified. Alignment is maintained. Joint spaces are maintained. IMPRESSION: 1. No fracture. Electronically signed by: Julio C Gibson MD (12/25/2019 4:05 AM) [facility]
[2019-12-25 04:20] VITALS: BP 116/74
--- NOTE | 2019-12-25 07:50 | EKG ---
[facility] [address] [place] [address] Test Date: 2019-12-25 Test Time: 01:34:45 Pat Name: JAMIR ZAPATA Department: Room: Gender: F [employer]: [id number] : 1975 Requested By: LINH GARRIDO Order Number: [id number] Reading MD: Measurements Intervals [place] Rate: 99 P: 62 [place]: 142 QRS: 19 QRSD: 76 T: 34 QT: 342 QTc: 444 Interpretive Statements SINUS RHYTHM LOW LIMB LEAD VOLTAGE QRS(T) CONTOUR ABNORMALITY CONSIDER ANTEROLATERAL MYOCARDIAL DAMAGE POSSIBLY ABNORMAL ECG RI6.01 No previous ECG available for comparison
== END 2019-12-25 04:30 | disposition home or self-care (01) ==
LOC: ER 23:25
DX: S96.812A Strain of other specified muscles and tendons at ankle and foot level, left foot, initial encounter (principal); S63.592A Other specified sprain of left wrist, initial encounter; R51 Headache; Z98.890 Other specified postprocedural states; Y08.89XA Assault by other specified means, initial encounter; Y93.89 Activity, other specified; Y92.89 Other specified places as the place of occurrence of the external cause; Y99.8 Other external cause status
CPT/HCPCS: 36415; 73110; 73610; 73630; 80053; 84484; 85025; 93005; 99285

== ENCOUNTER 2021-11-30 16:08 | Emergency (ER) | payer SELFPAY ==
[~2021-11-30] VITALS: Ht 177.8 cm; Wt 79.9 kg
[~2021-11-30 16:08] MED LIST changes: +CYCL10TA19 PO; -CYCL10TA2 PO; +PEG15DRO14 RIGHTEYE; -PEG15DRO4 RIGHTEYE
[2021-11-30] MEDS ORDERED: PRED20TA PO (17:29)
[2021-11-30] MEDS ORDERED: IBUP-1007 PO (17:29)
[2021-11-30] MEDS ORDERED: CYCL10TA19 PO (17:29)
[2021-11-30] MEDS ORDERED: KETOROLAC 60 MG/2 ML VIAL. IM ONE (17:30)
[2021-11-30] MEDS ORDERED: predniSONE 20 MG TABLET PO ONE (17:30)
--- NOTE | 2021-11-30 17:30 | PHYS DOC ---
Past Medical History Past Medical History: No Pertinent History (JESSICA WASHINGTON APRN) Past Surgical History: Other Additional Past Surgical Histo: LEFT FOOT FRACTURE REPAIR (JESSICA WASHINGTON APRN) Smoking Status: Never Smoker Alcohol Use: None Drug Use: None (JESSICA WASHINGTON APRN) General Adult EDM: Chief Complaint: BACK PAIN OR INJURY HPI: HPI: Patient is a 46 year old female presents to the emergency department complaining of low back pain for the past 2 weeks. 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 Patient denies history of IV drug abuse, immunosuppression, cancers, fevers or chills, numbness or tingling to her genitals or buttocks, denies bowel/bladder incontinence/retention. Denies traumatic injury to her back. Patient reports she had a tubal ligation approximately 20 years ago and could not be . Patient denies increased urinary pressure, urinary burning, hematuria or other dysuria. Patient denies constipation or diarrhea, denies abdominal pain. Patient denies other physical complaints or physical concerns. Patient is requesting a work excuse. (JESSICA WASHINGTON APRN) Review of Systems: Review of Systems: 14 body systems of review of systems have been reviewed. See HPI for pertinent positives and negative responses, otherwise all other systems are negative, nonpertinent or noncontributory. Constitutional: Negative except as outlined in HPI above. Skin: Negative except as outlined in HPI above. Eyes: Negative except as outlined in HPI above. HENT: Negative except as outlined in HPI above. Respiratory: Negative except as outlined in HPI above. Cardiovascular: Negative except as outlined in HPI above. GI: Negative except as outlined in HPI above. : Negative except as outlined in HPI above. Musculoskeletal: Negative except as outlined in HPI above. Integument: Negative except as outlined in HPI above. Neurologic: Negative except as outlined in HPI above. Endocrine: Negative except as outlined in HPI above. Lymphatic: Negative except as outlined in HPI above. Psychiatric: Negative except as outlined in HPI above. (JESSICA WASHINGTON APRN) Heart Score: C/O Chest Pain: No Risk Factors: Risk Factors: DM, Current or recent (<one month) smoker, HTN, HLP, family history of CAD, obesity. Risk Scores: Score 0 - 3: 2.5% MACE over next 6 weeks - Discharge Home Score 4 - 6: 20.3% MACE over next 6 weeks - Admit for Clinical Observation Score 7 - 10: 72.7% MACE over next 6 weeks - Early Invasive Strategies (JESSICA WASHINGTON APRN) Allergies: Allergies: Allergies Coded Allergies Type Severity Reaction Last Updated Verified No Known Drug Allergies 09/30/18 No (JESSICA WASHINGTON APRN) Physical Exam: PE: Constitutional: Well developed, well nourished, no acute distress, non-toxic appearance. 46-year-old female in no apparent distress. HENT: Normocephalic, atraumatic. Eyes: Conjunctiva normal, no discharge. Neck: Normal range of motion, no stridor. Cardiovascular: No cyanosis appreciated, distal cap refill less than 2 seconds. Lungs & Thorax: Patient is in no respiratory distress, no audible adventitious lung sounds appreciated. Abdomen: Nontender, no abnormalities noted. Skin: Warm, dry, no erythema, no rash. Back: No left-sided or right-sided CVA TTP, there is no midline spinal tenderness. There is pain to palpation of the left and right-sided lumbar muscular structures. Extremities: No tenderness, no cyanosis, no clubbing, ROM intact, no edema. 5/5 intact motor strength with hip flexion, knee flexion/extension/adduction, plantar/dorsiflexion at the ankle, and dorsiflexion of the toes bilaterally. Neurologic: Alert and oriented X 3, normal motor function, normal sensory function, no focal deficits noted. Psychologic: Affect normal, judgement normal, mood normal. (JESSICA WASHINGTON APRN) Current Patient Data: Vital Signs: Vital Signs Date Time Temp Pulse Resp B/P (MAP) Pulse Ox O2 Delivery O2 Flow Rate FiO2 11/30/21 16:10 98.0 77 18 138/77 (97) 98 Room Air 98.0 (JESSICA WASHINGTON APRN) EKG: EKG: [] (JESSICA WASHINGTON APRN) Radiology/Procedures: Radiology/Procedures: [] (JESSICA WASHINGTON APRN) Course & Med Decision Making: Course & Med Decision Making Pertinent Labs and Imaging studies reviewed. (See chart for details) 46-year-old female, vital signs reviewed, presents to the emergency department concerning low back strain after picking up a heavy patient while working as a [employer] approximately 2 weeks ago. Physical examination consistent with lumbago, there was no trauma, history of IV drug abuse, immunosuppression, cancers, fever or chills, saddle anesthesia, bowel/bladder incontinence/retention that would warrant emergent imaging. Additionally had 5/5 motor strength with hip flexion, knee flexion/extension/adduction, plantar/dorsiflexion at the ankle, and dorsiflexion of the toes bilaterally. Will give IM Toradol, oral prednisone, discharged home with prescriptions for ibuprofen, prednisone regimen for 10 days, ibuprofen. Patient is asking for work excuse, will give work excuse, discussed all medications, side effects with patient, patient gave verbal understanding of and is amenable to ED discharge planning. Thank you for visiting our Emergency Department. It was a pleasure taking care of you today in the emergency department and we appreciate you trusting us with your care. If any additional problems come up don't hesitate to return to visit us. Please follow up with your primary care provider so they can plan additional care if needed and know about the problem that you had. If symptoms worsen come back to the Emergency Department. Any concerning symptoms that start such as chest pain, shortness of air, weakness or numbness on one side of the body, running high fevers or any other concerning symptoms return to the ER. (JESSICA WASHINGTON APRN) Dragon Disclaimer: Dragon Disclaimer: This electronic medical record was generated, in whole or in part, using a voice recognition dictation system. (JESSICA WASHINGTON APRN) Departure Departure Impression: Primary Impression: Lumbago Qualified Codes: M54.42 - Lumbago with sciatica, left side; M54.41 - Lumbago with sciatica, right side Disposition: 01 HOME / SELF CARE / HOMELESS Condition: GOOD Referrals: NO PCP (PCP) Patient Instructions: Back Pain, Adult Additional Instructions: You were seen today in the emergency department for low back pain. As we discussed I have started you on a prednisone regimen for reducing inflammation of the nerves, I have also given you a pain medication injection in the emergency department called Toradol. I will prescribe for you a muscle relaxer called cyclobenzaprine, please use as directed for muscle spasms and a muscle relaxer, also do not drive or use heavy machinery or perform dangerous activities while taking the muscle relaxer. Please take prescribed medications as directed. Follow-up with your primary care physician soon for ongoing aches and pains when you return back to your home state. You had mentioned your planning on moving to this area in [place], therefore I provided a list of area healthcare providers and clinics for you to establish primary care with. Please return to the emergency department for worsening symptoms or other concerns. Thank you for visiting our Emergency Department. It was a pleasure taking care of you today in the emergency department and we appreciate you trusting us with your care. If any additional problems come up don't hesitate to return to visit us. Please follow up with your primary care provider so they can plan additional care if needed and know about the problem that you had. If symptoms worsen come back to the Emergency Department. Any concerning symptoms that start such as chest pain, shortness of air, weakness or numbness on one side of the body, running high fevers or any other concerning symptoms return to the ER. [facility] [address] [place] [address] [facility] [address] [place] [address] [facility] [address] [facility] [place] [address] [facility] [address] [place] [address] [facility] [address] [place] [address] [facility] [address] [place] [address] [facility] [address] [place] [address] [facility] [address] [place] [address] [facility] [address] [place] [address] [facility] Department [address] [place] [address] Scripts Prednisone (PREDNISONE) 20 Mg Tablet 2 TAB PO DAILY for Back pain for 10 Days, #20 TAB 0 Refills Take 2 tablets each day for the next 10 days. Prov: JESSICA WASHINGTON APRN 11/30/21 Ibuprofen (IBUPROFEN) 600 Mg Tablet 600 MG PO PRN Q6HRS PRN for INFLAMMATION, #30 TAB 0 Refills Prov: JESSICA WASHINGTON APRN 11/30/21 Cyclobenzaprine Hcl (CYCLOBENZAPRINE HCL) 10 Mg Tablet 10 MG PO TID, #15 TAB 0 Refills Prov: JESSICA WASHINGTON APRN 11/30/21 Attending Signature I have participated in the care of this patient and I have reviewed and agree with all pertinent clinical information above including history, exam, and recommendations. (LINH KRISHNAMURTHY DO) JESSICA WASHINGTON APRN November 30, 2021 17:30 LINH KRISHNAMURTHY DO November 30, 2021 17:52
[2021-11-30 17:45] VITALS: BP 130/72
== END 2021-11-30 17:53 | disposition home or self-care (01) ==
LOC: ER 16:08
DX: M54.41 Lumbago with sciatica, right side (principal); M54.42 Lumbago with sciatica, left side
CPT/HCPCS: 96372; 99283; J1885; J7512